=== PATIENT | female | born 1970 | race Caucasian/White ===

== ENCOUNTER 2023-07-02 00:11 | Emergency (ER) | payer OTHER, SELFPAY ==
[2023-07-02 00:12] VITALS: BP 124/65; PULSE 83; RESP 25; TEMP 36.1; O2SAT 100; BMI 40.7
--- NOTE | 2023-07-02 00:36 | CT_ITS ---
INDICATION: PAIN EXAMINATION: CT ABDOMEN AND PELVIS WITH CONTRAST TECHNIQUE: Helically acquired images were obtained of the abdomen and pelvis with sagittal and coronal reconstructed images. Individualized dose optimization techniques were used for this CT. IV contrast dosage and agent: 100 mL of Isovue 300. Oral contrast: None. COMPARISON: None. FINDINGS: VESSELS: No abdominal aortic aneurysm or dissection. LIVER: No evidence of a mass. No intrahepatic or extrahepatic biliary duct dilation. Hepatomegaly. GALLBLADDER: No calcified stones. No evidence of cholecystitis. PANCREAS: No focal solid or cystic mass. No evidence of pancreatitis. SPLEEN: Normal. ADRENAL GLANDS: Normal. KIDNEYS AND URETERS: No urinary tract stone. No hydronephrosis or hydroureter. No significant asymmetric perinephric stranding. URINARY BLADDER: Unremarkable. BOWEL: No evidence of diverticulosis or diverticulitis. Appendix appears normal. No evidence of bowel obstruction. REPRODUCTIVE ORGANS: Heterogeneous and lobulated uterus consistent with uterine fibroids. IUD within the uterus. 3.2 cm left adnexal cyst. PERITONEUM: No intraabdominal free fluid or free air. LYMPH NODES: No pathologically enlarged mesenteric or retroperitoneal lymph nodes. ABDOMINAL WALL: No abdominal or pelvic wall hernia. BONES: No acute abnormality. LOWER CHEST: Visualized lung bases are unremarkable. CT/Abdomen/Pelvis W IV Cont ONLY IMPRESSION: 1. No acute abnormality. 2. Fibroid uterus. 3. 3.2 cm left adnexal cyst. Recommend follow-up with nonemergent pelvic ultrasound. Electronically Signed: Eloy Ornelas DO at 2:13 EDT ,
[2023-07-02 00:46] LABS: Absolute Lymphocyte Count 3.73 X10^3/uL (0.83-4.51); Absolute Neutrophil Count 6.3 X10^3/uL (2.0-7.7); Basophil# 0.15 X10^3/uL; Basophil% 1.3 % (0-1); Eosinophils% 3.5 % (0-5); Hematocrit 41.7 % (37-47); Hemoglobin 13.7 g/dL (12.0-15.0); Lymphocyte # 3.73 X10^3/ul (0.83-4.51); Lymphocyte % 32.2 % (19-41); Mean Corp Hgb Conc 32.9 g/dL (32-36); Mean Corpuscular Hgb 29.1 pg (27.0-32.0); Mean Corpuscular Volume 88.7 fL (81-99); Mean Platelet Vol. 9.4 fl (6.2-12.0); Monocyte# 0.95 X10^3/uL; Monocyte% 8.2 % (0-10); NRBC Flagged by Analyzer 0 % (0-5); Neutrophil % 54.4 % (47-70); Platelet Count 291 K/mm3 (150-450); RBC Distribution Width CV 13.3 % (11.6-14.6); RBC Distribution Width SD 43.5 fl (35.1-43.9); White Blood Count 11.6 K/mm3 (4.4-11.0)
[2023-07-02] MEDS: 0.9% Normal Saline 1,000 ML 999 ML IV (00:55)
[2023-07-02 01:09] LABS: AST(SGOT) 49 U/L (15-37); Alanine Aminotransfer ALT/SGPT 32 U/L (13-56); Albumin, Serum 3.7 g/dL (3.2-5.0); Alkaline Phosphatase 64 U/L (45-117); Anion Gap 7 (5-15); BUN 11 mg/dL (7-18); BUN/Creat Ratio 12.2 RATIO (10-20); Bilirubin, Direct 0.17 mg/dL (0.00-0.30); Calcium,Total 8.6 mg/dL (8.5-10.1); Chloride 104 mmol/L (98-107); EST Glomerular Filtration Rate 70 mL/min (>60); Est Glom Filt Rate - Afr Amer 84 mL/min (>60); Estimated Creatinine Clearance 79.97 ml/min; Glucose 82 mg/dL (74-106); Lipase 87 U/L (13-75); Potassium 3.6 mmol/L (3.5-5.1); Protein, Total 7.7 g/dL (6.4-8.2); Sodium Level 140 mmol/L (136-145); Troponin-I HS < 3 pg/mL (3.0-54.0)
--- NOTE | 2023-07-02 01:18 | EX.ED.DYSGE1 ---
HPI History of Present Illness Chief Complaint: Chest Pain Informant: patient Narrative Narrative: Patient is a 52-year-old female with past medical history of arthritis. She states she was getting ready for bed and a roughly 35 minutes prior to arrival developed pain in the mid to right upper abdomen. She states this pain radiated towards her right shoulder and neck. She denies any vomiting diaphoresis or shortness of breath associated with this but does admit to mild nausea. She states that she was unsure if this was cardiac in nature and secondary to this comes in for evaluation. [facility] Medical History Arthritis Home Medications ondansetron 4 mg disintegrating tablet 4 mg PO TID PRN nausea and vomiting #21 tabs 07/02/23 [Rx Last Taken Unknown] Allergy/AdvReac Type Severity Reaction Status Date / Time No Known Allergies Allergy Verified 07/02/23 00:15 Surgical History History of bunionectomy Social History Smoking Status: Never smoker [facility] ED Constitutional Constitutional ED: Denies chills or fever(s) ENT ENT ED: Denies sore throat Cardiovascular Cardiovascular: Denies chest pain, palpitations or racing heartbeat Respiratory/Chest Respiratory/Chest: Denies cough or dyspnea Gastrointestinal Gastrointestinal: Reports abdominal pain and nausea; Denies diarrhea or vomiting Genitourinary Genitourinary ED: Denies dysuria Musculoskeletal Musculoskeletal: Denies myalgias Integumentary Denies rash Neurologic Neurologic: Denies headache(s) Hematologic/Lymphatic Hematologic/Lymphatic: Denies easy bleeding or easy bruising EXAM Physical Exam Const Vital Signs: 07/02/23 00:12 07/02/23 00:26 07/02/23 02:00 Temperature 97.0 F L Temperature Source Temporal Pulse Rate 83 77 Respiratory Rate 25 H 15 Respiratory Effort Normal Non-Labored Blood Pressure 124/65 H 106/63 Blood Pressure Mean 84 77 Pulse Ox 100 93 Oxygen Delivery Method Room Air Room Air Positive well nourished, well developed and obese General Appearance ED: well developed Nutritional Appearance: obese HEENT Reports moist mucous membranes Eyes PERRL and EOMs intact bilaterally General Eye ED: Negative for scleral icterus Neck supple Neck Narrative: No nuchal rigidity or meningeal signs Chest Wall palpation of chest normal Chest Narrative: No bony deformity or crepitance Resp normal respiratory effort and clear to auscultation bilaterally Cardio regular rate and regular rhythm Rate: other Other Details: Radial and carotid pulses are equal and symmetric GI non-distended GI Narrative: Abdomen is obese soft and nondistended with hyperactive bowel sounds. There is pain on palpation in the midepigastric and right upper quadrant region. No voluntary guarding or rigidity. Negative Crooks sign. No pulsatile mass or fluid wave Auscultation: hyperactive bowel sounds Palpation: soft Extremity Extremity Narrative: Trace to +1 pitting edema to the bilateral lower extremities but negative Homans' sign bilaterally Neuro oriented x3, CN's II-XII intact bilaterally and no sensory deficits noted Sensorium / Orientation: alert Motor Exam: strength 5/5 throughout Psych mental status grossly normal Skin no rashes or lesions noted General Skin Exam: Negative for jaundice MDM MDM MDM Narrative Medical decision making narrative: Patient presented to the ER in no acute distress. She reported pain in the midepigastric to right upper quadrant region with radiation to the right shoulder. Based on which she reportedly ate for dinner along with her age and weight biliary colic is high in the differential. There is also possibility of pancreatitis acute coronary syndrome or acute cholecystitis. Secondary to his basic labs were ordered. At this time of eating I cannot perform an ultrasound so CT with IV contrast was obtained. Labs showed no clinically significant findings and CT with IV contrast revealed no acute infectious or inflammatory or obstructive pathology. The patient had concern about potential cardiac disease but her troponin is less than 3 going against acute coronary syndrome and her EKG shows normal sinus rhythm without any type of ischemic change. The patient was able to fall asleep in the ER with improvement of her abdominal pain. I discussed with her obtaining pain and nausea medication upon arrival but she did not want this. Therefore her abdominal pain did improve spontaneously. Based on her age and weight and symptoms I do highly feel that her symptoms are related to a biliary spasm. The CT did not reveal any type of gallstones but this is most likely because they are non-radiopaque. I did offer a outpatient ultrasound the patient states she will follow-up with her family doctor to obtain this. She understands that there may been need for a HIDA scan and general surgery consultation as well based on her symptoms. At this time however as vitals are stable her pain is spontaneously improved and blood work and imaging revealed no acute infectious inflammatory obstructive or coronary event patient is safe for discharge History & Record Review Discussion w/independent historian: Patient Lab Data Attestation: I reviewed the patient's lab results. Labs: Laboratory Results - last 24 hr 07/02/23 00:15 WBC 11.6 H RBC 4.70 Hgb 13.7 Hct 41.7 MCV 88.7 MCH 29.1 MCHC 32.9 RDW Std Deviation 43.5 RDW Coeff of [place] 13.3 Plt Count 291 MPV 9.4 Immature Gran % (Auto) 0.400 Neut % (Auto) 54.4 Lymph % (Auto) 32.2 [place] % (Auto) 8.2 Eos % (Auto) 3.5 Baso % (Auto) 1.3 H Absolute Neuts (auto) 6.3 Absolute Lymphs (auto) 3.73 Nucleated RBC % 0 Sodium 140 Potassium 3.6 Chloride 104 Carbon Dioxide 29.0 Anion Gap 7 BUN 11 Creatinine 0.90 Estim Creat Clear Calc 79.97 Est GFR (MDRD) Af Amer 84 Est GFR (MDRD) Non-Af 70 BUN/Creatinine Ratio 12.2 Glucose 82 Calcium 8.6 Total Bilirubin 0.40 Direct Bilirubin 0.17 AST 49 H ALT 32 Alkaline Phosphatase 64 Troponin I High Sens < 3 L Total Protein 7.7 Albumin 3.7 Globulin 4.0 Lipase 87 H Discharge Plan Triage Chief Complaint: Chest Pain ED Provider: Ebenezer Perez Dx/Rx/DC Orders Clinical Impression: Biliary colic, History of arthritis Instructions: Abdominal Pain, ED Gallstones with Biliary Colic Prescriptions: New ondansetron 4 mg tablet,disintegrating 4 mg PO TID PRN (Reason: nausea and vomiting) Qty: 21 0RF Primary Care Provider: Gino Rivera Referrals: Gino Rivera, [Primary Care Provider] - Activity Restrictions/Additional Instructions: Your history and exam indicate that your pain this evening was from your gallbladder. I recommend you follow-up with your family doctor to discuss ultrasound and/or HIDA scan to further assess your gallbladder. Your EKG showed no signs of heart attack and your troponin was normal going against heart damage. Please eat a bland diet and smaller more frequent meals to prevent any further gallbladder attack and return to the ER should you have any further concerns Disposition Disposition: Home, Self Care
[2023-07-02 02:00] VITALS: BP 106/63; PULSE 77; RESP 15; O2SAT 93
[2023-07-02 03:13] VITALS: BP 106/63; PULSE 77; RESP 15; O2SAT 93
== END 2023-07-02 03:36 | disposition home or self-care (01) ==
PROVIDERS: Emergency Provider Emergency Medicine; PCP Student in an Organized Health Care Education/Training Program; Visit Provider Emergency Medicine
DX: K80.50 Calculus of bile duct without cholangitis or cholecystitis without obstruction (principal); M19.90 Unspecified osteoarthritis, unspecified site; E66.9 Obesity, unspecified
CPT/HCPCS: 74177; 80048; 80076; 83690; 84484; 85025; 93005; 99283; J7030; Q9967; A4216